=== PATIENT | female | born 1985 | race Caucasian/White ===

== ENCOUNTER → 2023-08-19 | Outpatient (CLI) | payer BC ==
--- NOTE | 2023-08-20 19:18 | MM ---
Reason for Exam: Screening (asymptomatic). Patient History: Menarche at age 11. First Full-Term at age 26. Premenopausal. Risk Values: Sandra 5 year model risk: 0.6%. NCI Lifetime model risk: 11.1%. Tissue Density: The breast tissue is heterogeneously dense. This may lower the sensitivity of mammography. Findings: Analyzed By CAD. No significant mass, suspicious microcalcification, or other discrete abnormality is seen. Overall Assessment: Negative, BI-RAD 1 Management: Screening Mammogram of both breasts in 1 year. . Patient should continue monthly self-breast exams. A clinical breast exam by your physician is recommended on an annual basis. This exam should not preclude additional follow-up of suspicious palpable abnormalities. Note on Sandra scores and lifetime risk: 1. A Sandra score greater than 3% is considered moderate risk. If this is the case, consider specialist referral to assess eligibility for a risk reducing agent. 2. If overall lifetime risk for the development of breast cancer is 20% or higher, the patient may qualify for future screening with alternating mammogram and breast MRI. Electronically signed and approved by: Lemuel Saldivar M.D. Radiologist
== END | disposition home or self-care (01) ==
LOC: RADMAMWWP 14:52
PROVIDERS: ATTEND Obstetrics & Gynecology
DX: Z12.31 Encounter for screening mammogram for malignant neoplasm of breast (principal)
CPT/HCPCS: 77063; 77067

== ENCOUNTER 2024-06-12 21:35 | Emergency (ER) | payer BC ==
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
[2024-06-12 22:05] VITALS: RESP 20; TEMP 98.5
[2024-06-13] MEDS: LIDOCAINE 1% INJ 10MG/ML (20 ML MDV) SQ ONE (00:23)
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
[2024-06-13] MEDS: ACETAMINOPHEN TAB 500 MG TAB PO STA (01:22)
[2024-06-13] MEDS: IBUPROFEN 600 MG TAB PO STA (01:59)
[2024-06-13] MEDS: ONDANSETRON ODT 4 MG TAB PO STA (01:59)
[2024-06-13] MEDS: DIPH,PERTUS(ACELL)TETVAC-LF 0.5 ML VIAL IM ONE (02:05)
[2024-06-13] MEDS: CEPHALEXIN 500 MG CAP PO STA (02:44)
[2024-06-13 03:12] VITALS: BP 116/76; PULSE 96
== END 2024-06-13 03:17 | disposition home or self-care (01) ==
LOC: EC 21:35
CPT/HCPCS: 12001; 70450; 90715; 96372; 99284